=== PATIENT | female | born 1995 | race Caucasian/White ===

== ENCOUNTER 2016-08-20 07:15 | Emergency (ER) | payer OTHER ==
[~2016-08-20] VITALS: Ht 167.6 cm; Wt 77.1 kg
[~2016-08-20 07:15] MED LIST: BUTALB-APAP-CA1 EACH PO; NORCO 5-325 TA1 EACH PO; PENICILLIN VK250 MG PO
[2016-08-20] MEDS ORDERED: ZOLOFT50 MG PO (07:37)
[2016-08-20] MEDS ORDERED: BACTRIM DS TAB1 EACH PO (07:37)
[2016-08-20 08:15] VITALS: BP 93/55
[2016-08-20] MEDS ORDERED: XANAX 0.25 MG0.25 MG PO (08:27)
== END 2016-08-20 08:43 | disposition home or self-care (01) ==
LOC: ER 07:15
DX: F41.9 Anxiety disorder, unspecified (principal); F41.0 Panic disorder [episodic paroxysmal anxiety]; G43.809 Other migraine, not intractable, without status migrainosus; Z88.1 Allergy status to other antibiotic agents; Z91.012 Allergy to eggs

== ENCOUNTER 2016-12-26 09:11 | Emergency (ER) | payer OTHER ==
[~2016-12-26] VITALS: Ht 167.6 cm; Wt 79.4 kg
[~2016-12-26 09:11] MED LIST changes: +BACTRIM DS TAB1 EACH PO; +XANAX 0.25 MG0.25 MG PO; +ZOLOFT50 MG PO
[2016-12-26] MEDS ORDERED: NORFLEX100 MG PO (09:24)
[2016-12-26] MEDS ORDERED: PREDNISONE 10 M10 MG PO (09:24)
[2016-12-26 09:30] VITALS: BP 104/63
== END 2016-12-26 13:18 | disposition home or self-care (01) ==
LOC: ER 09:11
DX: M54.6 Pain in thoracic spine (principal); M54.12 Radiculopathy, cervical region; F41.9 Anxiety disorder, unspecified; G43.909 Migraine, unspecified, not intractable, without status migrainosus; F10.99 Alcohol use, unspecified with unspecified alcohol-induced disorder; Z88.1 Allergy status to other antibiotic agents; Z91.012 Allergy to eggs

== ENCOUNTER 2017-12-30 09:59 | Emergency (ER) | payer OTHER ==
[~2017-12-30] VITALS: Ht 167.6 cm; Wt 90.7 kg
[~2017-12-30 09:59] MED LIST changes: +NORFLEX100 MG PO; +PREDNISONE 10 M10 MG PO
[2017-12-30] MEDS ORDERED: VIIBRYD10 MG PO (10:03)
[2017-12-30 10:27] LABS: URINE BILIRUBIN NEGATIVE (Negative); URINE BLOOD TRACE (Negative); URINE CLARITY CLOUDY; URINE COLOR YELLOW; URINE GLUCOSE-RANDOM* NEGATIVE (Negative); URINE KETONES NEGATIVE (Negative); URINE LEUKOCYTES-REFLEX NEGATIVE (Negative); URINE NITRITE-REFLEX NEGATIVE (Negative); URINE PROTEIN (DIPSTICK) NEGATIVE (Negative); URINE SPECIFIC GRAVITY >= 1.030 (1.005-1.035); URINE UROBILINOGEN 0.2 E.U./dl (0.2-1.0)
[2017-12-30 10:49] LABS: ABSOLUTE NEUTROPHILS 3.8 thou/uL (1.4-8.2); EOSINOPHILS 2.6 % (0.0-3.0); HEMOGLOBIN 12.7 gm/dL (12.0-15.0); LYMPHOCYTES 46.2 % (24.0-44.0); MCHC 33.4 g/dL (28.0-37.0); MONOCYTES 3.9 % (1.0-8.0); PLATELET COUNT 437 thou/uL (150-400); POLYS 46.3 % (36.0-66.0); WBC 8.3 thou/uL (4.0-11.0)
[2017-12-30 10:59] LABS: CALCIUM 9.3 mg/dL (8.5-10.1); CREATININE 0.8 mg/dL (0.6-1.0); POTASSIUM 3.8 mmol/L (3.5-5.1)
[2017-12-30] MEDS ORDERED: VISTARIL 25 MG25 M1 PO (12:22)
[2017-12-30 12:35] VITALS: BP 112/64
== END 2017-12-30 12:45 | disposition home or self-care (01) ==
LOC: ER 09:59
PROVIDERS: Physician Assistant
DX: G24.09 Other drug induced dystonia (principal); F32.9 Major depressive disorder, single episode, unspecified; F17.210 Nicotine dependence, cigarettes, uncomplicated; F41.9 Anxiety disorder, unspecified; G43.909 Migraine, unspecified, not intractable, without status migrainosus; Z88.1 Allergy status to other antibiotic agents; Z91.012 Allergy to eggs